=== PATIENT | male | born 1995 | race Caucasian/White ===

== ENCOUNTER → 2020-04-21 08:48 | Outpatient (CLI) | payer BC, SELFPAY ==
[2020-04-21 09:09] LABS: COVID19 -Nasal RAPID Negative (Negative)
== END ==
PROVIDERS: Visit Provider Nurse Practitioner
DX: Z20.822 Contact with and (suspected) exposure to COVID-19 (principal)
CPT/HCPCS: 87635

== ENCOUNTER → 2020-12-02 09:44 | Outpatient (CLI) | payer BC, SELFPAY ==
[2020-12-02 12:29] LABS: COVID19 -Nasal RAPID Negative (Negative)
== END ==
PROVIDERS: Visit Provider Nurse Practitioner
DX: Z20.822 Contact with and (suspected) exposure to COVID-19 (principal); R51.9 Headache, unspecified
CPT/HCPCS: 87635